=== PATIENT | female | born 1975 | race American Indian/Alaskan Native ===

== ENCOUNTER 2020-03-25 15:15 | Outpatient (CLI) | payer BC ==
--- NOTE | 2020-03-25 16:09 | Mammography Report ---
DIGITAL SCREENING MAMMOGRAM WITH CAD, 03/25/2020 CLINICAL INFORMATION / INDICATION: Routine screening mammography. SCREENING MAMMOGRAM TECHNIQUE: Digital bilateral 2D mammography was obtained in the craniocaudal and mediolateral obliqu e projections. This examination was interpreted with the benefit of Computer-Aided Detection analysis . COMPARISON: 06/01/2013 and 12/04/2015. FINDINGS: Breast Density: The breasts are almost entirely fatty. No dominant mass, suspicious calcifications, or architectural distortion in either breast. There are bilateral reduction changes. Benign skin calcifications are present bilaterally. IMPRESSION: No mammographic evidence of malignancy. Follow up recommendation: Routine yearly BI-RADS Category 2: Benign. A "normal" or negative report should not discourage follow up or biopsy of a clinically significant f inding. A written summary of these findings will be mailed to the patient. The patient will be entered into a mammography reporting system which will generate a reminder letter for the patient's next appointmen t at the appropriate interval. [employer] recommends yearly mammograms starting at age 40 and continuing as l blayne as a woman is in good health. Breast MRI is recommended for women with an approximate 20-25% or greater lifetime risk of breast cancer, including women with a strong family history of breast or ova anders cancer or who have been treated for Hodgkin's disease. Signer Name: Torin Friedman MD Signed: 03/25/2020 4:04 PM Workstation Name: [id number]
== END 2020-03-25 15:16 | disposition home or self-care (01) ==
LOC: SPVWC 15:15
PROVIDERS: ATTEND Obstetrics & Gynecology
DX: Z12.31 Encounter for screening mammogram for malignant neoplasm of breast (principal)
CPT/HCPCS: 77067